=== PATIENT | male | born 1940 | race Caucasian/White ===

== ENCOUNTER 2017-11-01 11:17 | Emergency (ER) | payer OTHER ==
[~2017-11-01] VITALS: Ht 170.2 cm; Wt 102.1 kg
--- NOTE | 2017-11-01 11:25 | NUR ---
PRESENTS TO ER C/O ABSCESS TO PERIANAL AREA x 6 DAYS. A/OX 4, BREATHING EVEN AND UNLABORED. NO SOB, NAD, VITALS STABLE. SAFETY AND COMFORT MEASURES IN PLACE. AWAITING MD ORDERS.
--- NOTE | 2017-11-01 11:44 | NUR ---
AT BEDSIDE FOR I/D OF ABSCESS
[2017-11-01] MEDS ORDERED: CLINDAMYCIN 900 MG/6 ML VIAL IM ONE (12:00)
[2017-11-01] MEDS ORDERED: LIDOCAINE 1% INJ 50 ML MDV IJ ONE (12:00)
[2017-11-01] MEDS ORDERED: CLINDAMYCIN 900 MG/6 ML VIAL ONE (12:04)
[2017-11-01 12:44] VITALS: BP 114/62
--- NOTE | 2017-11-01 12:44 | NUR ---
Patient discharged to home in stable condition. Written and verbal after care instructions given. Patient verbalizes understanding of instruction.
== END 2017-11-01 12:44 | disposition home or self-care (01) ==
LOC: ER 11:18
DX: L02.416 Cutaneous abscess of left lower limb (principal); B37.2 Candidiasis of skin and nail; I10 Essential (primary) hypertension; J44.9 Chronic obstructive pulmonary disease, unspecified
CPT/HCPCS: 10060; 87070; 87076; 96372; 99284; A4606; A6253; A6402; A6407; J3490; Z7610

== ENCOUNTER 2017-11-02 11:15 | Emergency (ER) | payer OTHER ==
[~2017-11-02] VITALS: Ht 167.6 cm; Wt 90.7 kg
[2017-11-02 11:31] VITALS: BP 134/87
[2017-11-02] MEDS ORDERED: IBUPROFEN 400 MG TABLET ONE (11:57)
[2017-11-02] MEDS ORDERED: IBUPROFEN 400 MG TABLET PO ONE (12:00)
== END 2017-11-02 11:59 | disposition home or self-care (01) ==
LOC: ER 11:17
DX: L02.31 Cutaneous abscess of buttock (principal); Z48.817 Encounter for surgical aftercare following surgery on the skin and subcutaneous tissue; I10 Essential (primary) hypertension; J44.9 Chronic obstructive pulmonary disease, unspecified; Z95.811 Presence of heart assist device
CPT/HCPCS: 99283; A4606; A6407; Z7610

== ENCOUNTER 2017-11-04 19:10 | Emergency (ER) | payer MEDICARE, OTHER ==
[~2017-11-04] VITALS: Ht 170.2 cm; Wt 102.1 kg
--- NOTE | 2017-11-04 19:20 | NUR ---
[facility] C/O "POSSIBLE ABSCESS BLEED OR RECTAL BLEDDING SINCE YESTERDAY" RECENT I&D ON LEFT INNER THIGH ON SUNDAY. HX HEMORRHOIDS. NAD NOTED, VSS, RESP EVEN AND UNLABORED. PT WAS PUT ON MONITOR. WAITING FOR MD TORRES.
[2017-11-04 19:48] LABS: BASOPHILS # (AUTO) 0.1 /CMM (0.0-0.2); BASOPHILS % (AUTO) 0.5 % (0.0-2.0); EOSINOPHILS % (AUTO) 0.5 % (0.0-6.0); HEMATOCRIT 36 % (39-51); HEMOGLOBIN 12.1 g/dL (13.5-17.5); LYMPHOCYTES # (AUTO) 1.6 /CMM (0.8-4.8); LYMPHOCYTES % (AUTO) 9.7 % (20.0-44.0); MEAN CORPUSCULAR HGB CONC 34 g/dl (31.0-36.0); MEAN CORPUSCULAR VOLUME 89 fL (80-96); MONOCYTES # (AUTO) 0.6 /CMM (0.1-1.30); MONOCYTES % (AUTO) 3.6 % (2.0-12.0); NEUTROPHILS # (AUTO) 13.6 /CMM (1.8-8.9); NEUTROPHILS % (AUTO) 85.7 % (43.0-81.0); PLATELET COUNT (AUTO) 433 /CMM (150-450); RDW COEFFICIENT OF VARIATION 13.9 (11.5-15.0); RED BLOOD CELL COUNT(AUTO) 3.98 MIL/uL (4.5-6.0)
[2017-11-04] MEDS ORDERED: IV NS 0.9% 1,000 ML BAG IV ONE (20:00)
[2017-11-04 20:01] LABS: INR 0.96 (0.85-1.15)
[2017-11-04 20:02] LABS: ALANINE AMINOTRANSFERASE 41 U/L (12-78); ALBUMIN 2.7 g/dL (3.4-5.0); ALKALINE PHOSPHATASE 92 U/L (46-116); ASPARTATE AMINOTRANSFERASE 41 U/L (15-37); BILIRUBIN,DIRECT 0.2 mg/dL (0.0-0.2); BILIRUBIN,TOTAL 0.6 mg/dL (0.2-1.0); CALCIUM, SERUM 8.7 mg/dL (8.5-10.1); CARBON DIOXIDE 22 mmol/L (21-32); CHLORIDE 103 mmol/L (98-107); CREATININE 1.6 mg/dL (0.6-1.3); GLUCOSE 132 mg/dL (74-106); POTASSIUM 3.9 mmol/L (3.5-5.1); SODIUM SERUM 137 mmol/L (136-145); TOTAL PROTEIN, SERUM 7.5 g/dL (6.4-8.2); UREA NITROGEN, BLOOD 23 mg/dL (7-18)
--- NOTE | 2017-11-04 20:05 | NUR ---
SPOKE TO NURSING [employer] AND REQUESTED A MED SURG BED.
--- NOTE | 2017-11-04 20:16 | NUR ---
PT TO CTSCAN
--- NOTE | 2017-11-04 20:54 | NUR ---
CALLED [facility] AFTER OFFICE HOURS NUMBER, SPOKE TO ANDREW VALENCIA, AND DR NATALIIA ALBERT WAS PAGED.
--- NOTE | 2017-11-04 21:06 | NUR ---
DR BETTY NEAL PER DR PRESLEY
--- NOTE | 2017-11-04 21:07 | NUR ---
DR HERNÁNDEZ UNABLE TO ACCEPT PT.
--- NOTE | 2017-11-04 21:08 | NUR ---
DR Landry PAGED PER DR PRESLEY
--- NOTE | 2017-11-04 21:13 | NUR ---
CALLED [facility] AND SPOKE WITH CORTNEY AND HE INFORMED ME TO FAX OVER CLINICALS TO [phone].
--- NOTE | 2017-11-04 21:20 | NUR ---
[facility] CALLED FOR HIGHER LEVEL OF CARE. NO AVAILABLE BEDS.
--- NOTE | 2017-11-04 21:23 | NUR ---
[facility] CALLED FOR HIGHER LEVEL OF CARE. SPOKE WITH BARBIE. FACESHEET AND IMAGING FAXED TO [phone]
--- NOTE | 2017-11-04 21:26 | NUR ---
[facility] CALLED FOR HIGHER LEVEL OF CARE. UNABLE TO ACCEPT PATIENT.
[2017-11-04] MEDS ORDERED: VANCOMYCIN 1 GM VIAL ONE (21:28)
[2017-11-04] MEDS ORDERED: CLINDAMYCIN 900 MG/6 ML VIAL ONE (21:29)
[2017-11-04] MEDS ORDERED: VANCOMYCIN 1 GM in IV NS 0.9% 250 ML IV SCH (21:30)
[2017-11-04] MEDS ORDERED: CLINDAMYCIN 600 MG in IV NS 0.9% 50 ML IV SCH (21:30)
--- NOTE | 2017-11-04 21:32 | NUR ---
CALLED [facility] AND SPOKE WITH JACOB AND SHE INFORMED THAT THEY DO NOT HAVE UROLOGY SERVICES AVAILABLE.
--- NOTE | 2017-11-04 21:35 | NUR ---
[facility] CALLED FOR HIGHER LEVEL OF CARE TRANSFER.
--- NOTE | 2017-11-04 21:43 | NUR ---
[facility] CALLED FOR HIGHER LEVEL OF CARE AND SPOKE TO TAURUS AND FAXED OVER CLINICALS TO [phone].
[2017-11-04] MEDS ORDERED: IV NS 0.9% 1,000 ML BAG IV PRN (22:00)
--- NOTE | 2017-11-04 22:06 | NUR ---
CALL FROM [facility]. PER BARBIE PT ACCEPTED BY DR AN. ROOM [id number]. # FOR REPORT [phone]
[2017-11-04] MEDS ORDERED: GENTAMICIN 120 MG in IV NS 0.9% 100 ML IV STA (22:11)
[2017-11-04] MEDS ORDERED: GENTAMICIN 80 MG/2 ML VIAL ONE (22:27)
[2017-11-04] MEDS ORDERED: MORPHINE SULFATE INJ 4 MG/ML DISP.SYRIN IV STA (22:27)
[2017-11-04] MEDS ORDERED: MORPHINE SULFATE INJ 4 MG/ML DISP.SYRIN ONE (22:27)
--- NOTE | 2017-11-04 22:30 | NUR ---
CALLED [facility] AND SPOKE WITH JURGEN TO ARRANGE A BLS TRANSPORT TO [facility]. WAS GIVEN AN ETA DRIVER/GUIDE TIME OF 0045. TRIP #:[id number].
--- NOTE | 2017-11-04 22:57 | NUR ---
RECEIVED A CALL FROM BARBIE AT [facility] AND [facility] AT [facility], AND WAS GIVEN A QUICKER ETA BUSINESS RESILIENCY MANAGER TIME. ALS TRANSPORT WOULD ARRIVE AT 0000 TO BUSINESS RESILIENCY MANAGER THE PATIENT.
[2017-11-04 23:23] VITALS: BP 154/76
--- NOTE | 2017-11-04 23:52 | NUR ---
[facility] AT BEDSIDE FOR TRANSPORT TO [facility].
== END 2017-11-05 00:08 | disposition short-term general hospital (02) ==
LOC: ER 19:12 → UNDOADMIN 20:33 → MEDSG2 20:33 → ER 11-05 00:08
DX: N49.3 Fournier gangrene (principal); J44.9 Chronic obstructive pulmonary disease, unspecified; Z95.818 Presence of other cardiac implants and grafts; Z98.890 Other specified postprocedural states
CPT/HCPCS: 36415; 80048-TC; 80076-TC; 83605-TC; 85025-TC; 85730-TC; 86850-TC; 87040-TC; 87081-TC; A4216; A4606; J1580; J2270; J3370; J3490; J7030; J7050; Z7610